=== PATIENT | female | born 1985 | race African-American/Black ===

== ENCOUNTER 2016-05-26 01:57 | Inpatient (IN) ==
[2016-05-26] MEDS ORDERED: BUTORPHANOL 2 MG/ML VIAL IV PRN (02:13)
[2016-05-26] MEDS ORDERED: TERBUTALINE 1 MG/1 ML VIAL SUBCUT PRN (02:13)
[2016-05-26] MEDS ORDERED: ONDANSETRON 4 MG/2 ML VIAL IV PRN ×2 (02:13→03:19)
[2016-05-26] MEDS ORDERED: ACETAMINOPHEN 325 MG TABLET PO PRN ×2 (02:13→03:19)
[2016-05-26] MEDS ORDERED: AMPICILLIN 2,000 MG VIAL ONE (02:16)
[2016-05-26] MEDS ORDERED: SODIUM CHLORIDE 0.9% 100 ML IV ONE (02:17)
[2016-05-26] MEDS ORDERED: AMPICILLIN INJ 2,000 MG in SODIUM CHLORIDE 0.9% 100 ML IV ONE (02:24)
[2016-05-26] MEDS ORDERED: MEPERIDINE 50 MG/1 ML VIAL IV ONE (02:29)
[2016-05-26] MEDS ORDERED: OXYTOCIN/LR 20 UNIT/1,000 ML BAG IV SCH (02:30)
[2016-05-26] MEDS ORDERED: LACTATED RINGERS 1,000 ML IV SCH (02:30)
[2016-05-26] MEDS ORDERED: LIDOCAINE 1% 50 ML VIAL ONE (02:35)
[2016-05-26] MEDS ORDERED: miSOPROStol 200 MCG TABLET ONE (02:36)
[2016-05-26] MEDS ORDERED: CARBOPROST TROMETHAMINE 250 MCG/ML AMP IM ONE (02:40)
[2016-05-26 02:56] LABS: Alanine Aminotransferase 9 U/L (13-56); Albumin 2.6 G/DL (3.4-5.0); Alkaline Phosphatase 108 U/L (45-117); Aspartate Amino Transferase 10 U/L (0-37); Bilirubin,Total < 0.39 MG/DL (0.2-1.0); Blood Urea Nitrogen 6 MG/DL (7-18); Calcium 8.2 MG/DL (8.5-10.1); Glucose 90 MG/DL (74-106); Osmolality,Calculated 278.3 MOS/KG (273-304); Potassium 3.8 MMOL/L (3.5-5.1); Sodium 141 MMOL/L (136-145); Total Protein 6.4 G/DL (6.4-8.3); Uric Acid 4.3 MG/DL (2.6-6.0)
[2016-05-26 02:57] LABS: Basophils % 0.2 % (0.0-0.8); Eosinophils # 0.1 10*3/uL (0.0-0.87); Eosinophils % 0.7 % (0.00-10.9); Hematocrit 33.9 VOL% (35.7-47.0); Immature Granulocytes % 0.2 %; Immature Granulocytes Absolute 0.02 #; Lymphocytes # 2.3 10*3/uL (1.4-4.0); Lymphocytes % 25.3 % (21.3-54.2); Mean Corpuscular HGB Conc 29.5 GM/DL (32-36); Mean Corpuscular Hemoglobin 23 PG (27-34); Mean Corpuscular Volume 76.2 FL (87-102); Mean Platelet Volume 11.9 FL (9.6-12.0); Monocytes # 0.8 10*3/uL (0.11-0.8); Monocytes % 8.4 % (1.7-12.7); Neutrophils # 5.9 10*3/uL (1.4-7.4); Neutrophils % 65.2 % (38.7-73.9); Platelet Count 318 10*3/uL (130-400); Red Blood Count 4.45 10*6/uL (3.8-5.5); Red Cell Distribution Width 18.4 % (9.3-17.3); White Blood Count 9.1 10*3/uL (4.5-13.71)
[2016-05-26] MEDS ORDERED: MEASLES/MUMPS/RUBELLA VACCINE 0.5 ML VIAL SUBCUT ONE (03:19)
[2016-05-26] MEDS ORDERED: HYDROCORTISONE 2.5% RECTAL CREAM 30 GM TUBE TOP PRN (03:19)
[2016-05-26] MEDS ORDERED: RHO(D) IMMUNE GLOBULIN 300 MCG SYRINGE IM ONE (03:19)
[2016-05-26] MEDS ORDERED: OXYTOCIN/LR 20 UNIT/1,000 ML BAG IV ONE (03:19)
[2016-05-26] MEDS ORDERED: BENZOCAINE 20%/MENTHOL 0.5% SPRAY 56 GM CAN TOP PRN (03:19)
[2016-05-26] MEDS ORDERED: LANOLIN 50% CREAM 0.3 OZ TUBE TOP PRN (03:19)
[2016-05-26] MEDS ORDERED: oxyCODONE/ACETAMINOPHEN 5-325 MG TABLET PO PRN (03:19)
[2016-05-26] MEDS ORDERED: WITCH HAZEL PADS 100/JAR TOP PRN (03:19)
[2016-05-26] MEDS ORDERED: DIPH/TET/ACEL PERT BOOSTER VACCINE 0.5 ML VIAL IM ONE (03:19)
[2016-05-26] MEDS ORDERED: BISACODYL 10 MG SUPP RECTAL PRN (03:19)
--- NOTE | 2016-05-26 03:23 | OB/GYN History & Physical ---
History of Present Illness Chief complaint: labor History of present illness: Ms. Cody is a 30 year old female 014 at approximately 3738 weeks gestation presented active labor. Patient without any care. Upon admission she was found be 7 cm dilated Home Medications Medication Instructions Recorded Confirmed Type Pnv No.122/Iron/Folic Acid 1 tablet PO DAILY 04/13/16 05/26/16 History [ Multi Tablet] Allergies Allergy/AdvReac Type Severity Reaction Status Date / Time No Known Allergies Allergy Verified 08/08/14 01:58 12 point system: reviewed and no additional remarkable complaints except as stated Medical,Surgical,& Family Hx - Medical History Musculoskeletal: No history of: Amputation Reproductive: No history of: Ectopic , Complication - Surgical History Cardiac Surgeries: Patient Denies: Cardiac Catheterization Abdominal Surgeries: Patient denies: Abdominal Surgery Reproductive Surgeries: Patient denies;: Gynecologic Surgery - Family History Family History: Reports;: Family Cancer (pgf), Family Stroke (mgm) Denies;: Family Anesthesia Reaction, Family Diabetes, Family Heart Disease, Family Hematology, Family Hypertension, Family Psychiatric Problems, Additional Family History - Social History Smoking Status: Never smoker Frequency of Alcohol Use: None Type of Drug Use: None Exam LAN MANAGER - Constitutional General appearance: mild distress - Head Head exam: Present: normocephalic - Respiratory Respiratory exam: Present: clear to auscultation bilaterally - Cardiovascular Cardiovascular exam: Present: regular rate and rhythm - GI/Abdominal GI/Abdominal exam: Present: soft - Extremities Exam Extremities exam: Present: normal inspection - Back Exam Back exam: Present: normal inspection - Neurological Exam Neurological exam: Present: alert - Psychiatric Psychiatric exam: Present: normal affect, normal mood - Skin Skin exam: Present: normal color, warm Assessment and Plan (1) 37 weeks gestation of Status: Acute Current Visit: Yes (2) Labor established Status: Acute Assessment and plan: Patient admitted in active labor with expected vaginal delivery Current Visit: Yes Results - Labs CBC & BMP: 05/26/16 02:25 05/26/16 02:25 Quality Measures - VTE Contraindication to Pharmacological VTE Prophylaxis: Clinical assessment deems Pt at low risk, no prophalaxis needed
--- NOTE | 2016-05-26 03:24 | Operative Note ---
Date of procedure: 05/26/16 Pre-op diagnosis: 37 weeks. Active labor Post-op diagnosis: same Procedure: Patient delivered a liveborn female via a precipitous spontaneous vaginal delivery. Was delivered in CATRINA position. Nose mouth bulb suctioned at perineum. Anterior posterior shoulders followed by the body was delivered with ease. Umbilical cord was doubly clamped and cut and baby handed off to the waiting nurse. Cord blood was sent. Placenta was delivered spontaneously and intact with three-vessel cord. Patient sustained a second-degree perineal laceration which was repaired with 2-0 chromic. The uterus was massaged was found be firm and well contracted. Hemostasis found be adequate. The procedure all sponge lap needle counts correct 2. Baby and mother in stable condition. Anesthesia: local Surgeon / Physician: Hernán Shepard Estimated blood loss: other (100 mL) Specimens: none sent Condition: stable Disposition: floor Results - Labs CBC & BMP: 05/26/16 02:25 05/26/16 02:25 Discharge Plan - Discharge Medications No Action Pnv No.122/Iron/Folic Acid [ Multi Tablet] 1 tablet PO DAILY - Follow Up or Referral - Forms/Instructions
[2016-05-26 03:37] LABS: Cord Arterial Blood HCO3 20.5 MMOL/L
[2016-05-26 03:38] LABS: Cord Venous Blood HCO3 22.9 MMOL/L; Cord Venous Blood PO2 32.6 MMHG
[2016-05-26 03:40] LABS: Apearance,Urine Slightly Hazy (Clear); Bilirubin,Urine Negative (Negative); Blood, Urine Negative (Negative); Glucose,Urine (UA) Negative (Negative); Ketones,Urine 5 mg/dL (Negative); Mucus,Urine Occasional /LPF (Occasional); Nitrite,Urine Negative (Negative); Protein,Urine Negative; RBC,Urine <1 /HPF (0-4); Squamous Epithelial Cell,Urine Occasional /HPF (0-10); Urine Color Amber (Yellow); Urine Specific Gravity 1.025 (1.001-1.035); Urine Urobilinogen < 2.0 EU/DL (0.2-1.0); WBC,Urine 1 /HPF (0-6)
[2016-05-26 03:42] LABS: Barbiturates Screen,Urine Negative (Negative); Benzodiazepines Screen,Urine Negative (Negative); Cannabinoid Screen,Urine Negative (Negative); Opiate Screen,Urine Negative (Negative); Phencyclidine Screen,Urine Negative (Negative)
[2016-05-26] MEDS: IBUPROFEN 800 MG TABLET PO PRN ×4 (05:06→23:41)
[2016-05-26] MEDS: oxyCODONE/ACETAMINOPHEN 5-325 MG TABLET PO PRN ×3 (05:06→19:16)
[2016-05-26 07:03] LABS: Basophils % 0.2 % (0.0-0.8); Eosinophils % 0.1 % (0.00-10.9); Hematocrit 32.5 VOL% (35.7-47.0); Hemoglobin 9.6 GM/DL (12.0-16.0); Immature Granulocytes % 0.6 %; Immature Granulocytes Absolute 0.08 #; Lymphocytes # 1.1 10*3/uL (1.4-4.0); Lymphocytes % 7.8 % (21.3-54.2); Mean Corpuscular HGB Conc 29.5 GM/DL (32-36); Mean Corpuscular Hemoglobin 22 PG (27-34); Mean Corpuscular Volume 75.2 FL (87-102); Mean Platelet Volume 11.5 FL (9.6-12.0); Monocytes # 0.9 10*3/uL (0.11-0.8); Monocytes % 6.2 % (1.7-12.7); Neutrophils # 12.4 10*3/uL (1.4-7.4); Neutrophils % 85.1 % (38.7-73.9); Platelet Count 304 10*3/uL (130-400); Red Blood Count 4.32 10*6/uL (3.8-5.5); Red Cell Distribution Width 18.2 % (9.3-17.3); White Blood Count 14.5 10*3/uL (4.5-13.71)
[2016-05-26 07:52] LABS: Hepatitis B Surface Ag Quant 0.14 Index; Hepatitis B Surface Ag Result Negative (Negative)
[2016-05-26] MEDS: DOCUSATE SODIUM 100 MG CAPSULE PO SCH ×2 (09:33→20:29)
[2016-05-27] MEDS: oxyCODONE/ACETAMINOPHEN 5-325 MG TABLET PO PRN (05:28)
[2016-05-27 06:02] LABS: Basophils % 0.3 % (0.0-0.8); Eosinophils # 0.2 10*3/uL (0.0-0.87); Eosinophils % 2.1 % (0.00-10.9); Immature Granulocytes % 0.3 %; Immature Granulocytes Absolute 0.03 #; Lymphocytes # 2.8 10*3/uL (1.4-4.0); Lymphocytes % 30.5 % (21.3-54.2); Mean Corpuscular HGB Conc 28.2 GM/DL (32-36); Mean Corpuscular Hemoglobin 22 PG (27-34); Mean Corpuscular Volume 77.6 FL (87-102); Mean Platelet Volume 11.2 FL (9.6-12.0); Monocytes # 0.7 10*3/uL (0.11-0.8); Monocytes % 7.1 % (1.7-12.7); Neutrophils # 5.5 10*3/uL (1.4-7.4); Neutrophils % 59.7 % (38.7-73.9); Platelet Count 245 10*3/uL (130-400); Red Blood Count 3.88 10*6/uL (3.8-5.5); Red Cell Distribution Width 18.3 % (9.3-17.3); White Blood Count 9.1 10*3/uL (4.5-13.71)
[2016-05-27 06:12] LABS: Hematocrit 29.4 VOL% (35.7-47.0); Hemoglobin 8.4 GM/DL (12.0-16.0)
[2016-05-27 06:25] LABS: Elliptocytes Few; Hypochromasia 1+; Platelet Estimate Adequate
[2016-05-27 06:36] LABS: HIV Antigen/Antibody Result Nonreactive (Nonreactive)
[2016-05-27] MEDS: DOCUSATE SODIUM 100 MG CAPSULE PO SCH (08:14)
--- NOTE | 2016-05-27 09:31 | OB/GYN Progress Note ---
Assessment and Plan (1) 37 weeks gestation of Status: Acute Current Visit: Yes (2) Labor established Status: Acute Assessment and plan: Patient admitted in active labor with expected vaginal delivery Current Visit: Yes (3) Vaginal delivery Status: Acute Assessment and plan: Routine care with discharge planning in a.m. Current Visit: Yes SKILLS TRAINER - PN: Subj Interval history: No complaints Exam SKILLS TRAINER - Constitutional Vitals: Vital Signs Temp Pulse Resp BP Pulse Ox 05/27/16 07:27 96.9 F L 78 20 111/71 95 05/27/16 04:00 98.2 F 82 20 127/72 99 05/26/16 23:37 98.2 F 85 20 123/71 99 05/26/16 19:49 97.5 F L 80 20 136/82 98 05/26/16 16:00 97.8 F 71 20 124/77 96 05/26/16 14:00 97.4 F L 88 18 128/87 96 05/26/16 12:00 97.4 F L 90 18 137/65 99 General appearance: no acute distress - Antepartum / Post Post Exam Abdomen obstetrics: Present: bowel sounds normal Vagina: Present: normal moisture Uterus exam: Present: normal size, normal contour Anus/Rectum: Present: normal perianal skin - Respiratory Respiratory exam: Present: clear to auscultation bilaterally - Cardiovascular Cardiovascular exam: Present: regular rate and rhythm - GI/Abdominal GI/Abdominal exam: Present: normal bowel sounds - Extremities Exam Extremities exam: Present: normal inspection - Back Exam Back exam: Present: normal inspection - Neurological Exam Neurological exam: Present: alert, oriented X3 - Psychiatric Psychiatric exam: Present: normal affect, normal mood - Skin Skin exam: Present: normal color, warm Results - Labs CBC & BMP: 05/27/16 05:52 05/26/16 02:25
[2016-05-27] MEDS: IBUPROFEN 800 MG TABLET PO PRN ×2 (12:06→17:51)
[2016-05-28] MEDS: IBUPROFEN 800 MG TABLET PO PRN ×2 (01:12→08:36)
[2016-05-28] MEDS: DOCUSATE SODIUM 100 MG CAPSULE PO SCH (08:36)
[2016-05-28 11:57] VITALS: BP 116/75
--- NOTE | 2016-05-28 12:46 | Pathology Report from [facility] ---
ACCESSION # : [id number] PATIENT NAME : Elisa Roberson ORDERING DR : PADMINI HENLEY MD CLINICAL HX: IUP @ 37 wks, no care POST-OP DX: Same SPECIMEN INFO: Placenta GROSS DESCRIPTION: Received fresh labeled with the patient's name and consists of a 317 gram placenta measuring 14.6 x 14.2 cm x up to 3.2 cm. membranes are pink-may, translucent. The umbilical cord is pericentrally inserted, contains three vessels and measures 19.5 cm, contains three vessels. The surface is [id number] with a partially circumvalate with areas of subchorionic fibrin present. The maternal surface is beefy red with mildly disrupted cotyledons with areas of thick fibrin measuring up to 9.0 cm. Sectioning reveals marked fibrotic areas present. Sections submitted: A membranes and cord, B surface, C maternal surface. DIAGNOSIS FOR ELISA ROBERSON: PLACENTA: Trivascular umbilical cord. Chorioamnionitis. Term placenta with small placental infarction. Subchorionic fibrin deposition and dystrophic calcification. SERVICE DATE: 05/27/2016 REPORT DATE: 05/28/2016 PATHOLOGIST: Monie Luz III, M.D. MTDD
--- NOTE | 2016-05-28 13:12 | Discharge Summary ---
Hospital Course - Hospital Course Hospital Course: This is a 30-year-old multiparous female who presented in active labor at term. She subsequently delivered a liveborn female via spontaneous vaginal delivery. Hospital course was unremarkable day #2 she was ready for discharge. Patient is requesting tubal ligation as her choice of contraception. She is instructed to follow-up in the office in 2 weeks for counseling and to sign tubal consent. Diagnosis - Discharge Diagnosis (1) 37 weeks gestation of Status: Acute (2) Labor established Status: Acute (3) Vaginal delivery Status: Acute Specialty Discharge - Follow Up or Referrals Discharge Plan - Discharge Data Disposition: Disch To Home/Self Care Condition at Discharge: Stable Discharge Diet: advance to your usual diet Activity: resume usual activities as tolerated (pelvic rest) Hygiene: may shower Weight Bearing at Discharge: weight bear as tolerated Driving: no restrictions Contact your physician if you experience:: fever over 101, Difficulty voiding, Redness or swelling, Nausea/Vomiting, Shortness of breath, Bleeding, pain uncontrolled by pain medications - Discharge Medications New Ibuprofen Tab [Motrin Tab] 800 mg PO Q8H #30 tablet No Action Pnv No.122/Iron/Folic Acid [ Multi Tablet] 1 tablet PO DAILY - Follow Up or Referral Follow Up: Hernán Shepard MD [Physician] - 2 Weeks - Forms/Instructions Instructions: Perineal Care (DC), Vaginal Delivery (DC), Bleeding (DC) Exam - Constitutional Vitals: Period Temp Pulse Resp BP Sys/Joseph Pulse Ox Last 24 Hr 97.8 F-98.1 F 64-83 18-20 116-133/70-80 95-98 General appearance: no acute distress - Head Head exam: Present: normocephalic - Neck Neck exam: Present: normal inspection - Respiratory Respiratory exam: Present: clear to auscultation bilaterally - Cardiovascular Cardiovascular exam: Present: regular rate and rhythm - GI/Abdominal GI/Abdominal exam: Present: normal bowel sounds, soft - Extremities Exam Extremities exam: Present: normal inspection - Back Exam Back exam: Present: normal inspection - Neurological Exam Neurological exam: Present: alert, oriented X3 - Psychiatric Psychiatric exam: Present: normal affect, normal mood - Skin Skin exam: Present: normal color, warm DS: Provider Date of admission: 05/26/16 02:13 Primary care physician: . No PCP Attending physician on admission: Hernán Shepard MD Consults: 05/26/16 02:13 Consult to Anesthesiology [CONS] Routine Consulting Provider: Reason for Anesthesiology: Epidural Consult Comment: Epidural for pain managment 05/26/16 03:19 Consult to Raw Scales Operator [CONS] Routine Consult Raw Scales Operator: Breast Feeding Discharging clinician: Hernán Shepard MD
== END 2016-05-28 13:50 | disposition home or self-care (01) | DRG 775 ==
LOC: N.LDOUT 01:57 → N.LD 01:59 → N.OB 13:35
PROVIDERS: ADMIT Obstetrics & Gynecology; ATTEND Obstetrics & Gynecology